=== PATIENT | female | born 1960 | race Two or more races ===

== ENCOUNTER 2017-05-07 19:17 | Emergency (ER) | payer OTHER, MEDICAID ==
[2017-05-07 21:56] VITALS: BP 151/88
--- NOTE | 2017-05-07 21:59 | ER Document Report ---
ED Extremity Problem, Upper - General Chief Complaint: Laceration Stated Complaint: FINGER LACERATION Time Seen by Provider: 05/07/17 21:50 Mode of Arrival: Ambulatory Information source: Patient TRAVEL OUTSIDE OF THE [place] IN LAST 30 DAYS: No - HPI Patient complains to provider of: Injury, Left Onset: Just prior to arrival Recent injury: Yes Where: Work Notes: Patient states she was cutting onions at work with a knife when she accidentally cut the tip of her left index finger. She states that she was able to get the bleeding to stop by putting ground coffee onto the wound. She denies any pain at this time. She denies any numbness, tingling, weakness. She denies any fevers. She denies any other injuries. She denies any chest pain or shortness of breath. She denies any nausea, vomiting, diarrhea. She denies any difficulty with movement. She denies any pain currently. No other complaints, no other injuries. - Related Data Allergies/Adverse Reactions: Iodinated Contrast- Oral and IV Dye Allergy (Intermediate, Verified 05/07/17 19: 18) VOMITING Past Medical History - Social History Smoking Status: Never Smoker Family History: Reviewed & Not Pertinent Patient has suicidal ideation: No Patient has homicidal ideation: No Renal/ Medical History: Denies: Hx Peritoneal Dialysis Review of Systems - Review of Systems -: Yes All other systems reviewed and negative Physical Exam - Vital signs Vitals: Temp Pulse BP Pulse Ox 98.4 F 97 169/99 H 99 05/07/17 19:52 05/07/17 19:52 05/07/17 19:52 05/07/17 19:52 - Notes Notes: GENERAL: alert, cooperative, nontoxic, no distress. HEAD: normocephalic, atraumatic EYES: conjunctiva pink without discharge, no external redness or swelling. EARS: no external swelling, no external redness NOSE: atraumatic, no external swelling MOUTH/THROAT: mucous membranes moist and pink NECK: soft, supple, full range of motion, no meningismus. CHEST: no distress, lungs clear and equal throughout. No wheezing, rales, rhonchi. CARDIAC: regular rate and rhythm, no murmur, normal capillary refill, normal pulses. BACK: full range of motion, no CVA tenderness. EXTREMITIES: full range of motion of all extremities. No redness, no swelling. Avulsion laceration to the tip of the left index finger thumb side involving the distal portion of the fingernail. There is no active bleeding at this time. Normal cap refill and sensation distally. Full flexion and extension of the finger. NEURO: alert and oriented 3, no focal deficits, full range of motion of all extremities. PYSCH: appropriate mood, affect. Patient is cooperative. SKIN: pink, warm, dry, no rash. Course - Re-evaluation Re-evalutation: 05/07/17 21:57 Patient is nontoxic. Stable vitals. The patient arrives with complaints of finger laceration. She externally cut the thumb side left fingertip laceration off using a knife. Is not actively bleeding at this time. The wound will be cleaned and a Gelfoam dressing will be applied to the fingertip. She will be discharged home. Her tetanus is up-to-date. She is neurovascularly intact with no signs of infection. The patient is noted to have elevated blood pressure during today's emergency department visit. The patient was informed of this finding. The patient was instructed that this may be related to pre-hypertension and requires further evaluation with a primary care provider. The patient has no hypertensive symptoms at this time. The patient's emergency department workup and current diagnosis were explained to the patient and or family. Follow-up instructions were provided. Medications if prescribed were discussed. Instructions for when to return to the emergency department including specific worrisome symptoms were discussed with the patient and/or family. - Vital Signs Vital signs: Temp Pulse Resp BP Pulse Ox 98.4 F 97 169/99 H 99 05/07/17 19:52 05/07/17 19:52 05/07/17 19:52 05/07/17 19:52 Discharge - Discharge Clinical Impression: Laceration of left index finger Qualifiers: Encounter type: initial encounter Damage to nail status: with damage Foreign body presence: without foreign body Qualified Code(s): S61.311A - Laceration without foreign body of left index finger with damage to nail, initial encounter Condition: Stable Disposition: HOME, SELF-CARE Instructions: Laceration Care (OM) Additional Instructions: Keep wound clean and dry. Wear dressing for the next 3 days and then you can place a new dressing over the wound. Follow-up for increasing pain, fever, redness, drainage, bleeding you cannot get stopped, or for any further concerns. Your blood pressure was elevated during today's visit. Have this rechecked with your doctor. Forms: Elevated Blood Pressure, Smoking Cessation Education Referrals: [facility] [Provider Group] - Follow up as needed
[2017-05-07] MEDS ORDERED: DIPH/PERTUSS(ACELL)/TETANUS VAC/PF 0.5 ML SYR (>=10YO) IM ONE (22:09)
[2017-05-07] MEDS ORDERED: IBUPROFEN 600 MG TABLET PO ONE (22:27)
== END 2017-05-07 22:36 | disposition home or self-care (01) ==
LOC: ER 19:17
DX: S61.311A Laceration without foreign body of left index finger with damage to nail, initial encounter (principal); W26.0XXA Contact with knife, initial encounter; Y93.G1 Activity, food preparation and clean up; Y99.0 Civilian activity done for income or pay; R03.0 Elevated blood-pressure reading, without diagnosis of hypertension
CPT/HCPCS: 90471; 90715; 99282

== ENCOUNTER 2019-01-22 00:44 | Emergency (ER) | payer MEDICAID, OTHER ==
--- NOTE | 2019-01-22 04:12 | ER Document Report ---
HPI - HPI Time Seen by Provider: 01/22/19 04:03 Pain Level: 5 Context: Patient is a 58-year-old female that comes emergency department for chief complaint of sharp pain in her lower back and also in her left hip. Lower back pain is off to the side of the spine on the left and radiates down the back of her leg, this is been worsening for a week, however she also has pain in the left hip area, she points to the area, this is ultra sharp and painful. She denies any injury. She denies any surgeries. She has a history of type 2 diabetes on metformin. She states she has been taking Aleve for the symptoms but it is not helping. She denies flank pain otherwise, vomiting, dysuria, fever, numbness, incontinence, history of IV drug abuse. Her son is at bedside. Past Medical History - General Information source: Patient - Social History Smoking Status: Never Smoker Frequency of alcohol use: None Drug Abuse: None Lives with: Family Family History: Reviewed & Not Pertinent Patient has suicidal ideation: No Patient has homicidal ideation: No Renal/ Medical History: Denies: Hx Peritoneal Dialysis - Immunizations Immunizations up to date: Yes Hx Diphtheria, Pertussis, Tetanus Vaccination: Yes Vertical Provider Document - CONSTITUTIONAL General Appearance: WD/WN, Mild Distress - Patient is restless and uncomfortable, appears to have difficulty getting comfortable on the bed - INFECTION CONTROL TRAVEL OUTSIDE OF THE [place] IN LAST 30 DAYS: No - HEENT HEENT: Atraumatic, Normocephalic - NECK Neck: Normal Inspection - RESPIRATORY Respiratory: Breath Sounds Normal, No Respiratory Distress - CARDIOVASCULAR Cardiovascular: Regular Rate, Regular Rhythm - GI/ABDOMEN Gastrointestinal: Abdomen Soft, Abdomen Non-Tender - BACK Back: negative: Normal Inspection - Tender with tight muscle fibers along the left paralumbar musculature and down to the buttocks. Positive straight leg raise on the left. No midline tenderness, no saddle anesthesia, no signs of trauma. Normal upper and lower extremity range of motion, normal strength, normal distal neurovascular exam. - MUSCULOSKELETAL/EXTREMETIES Musculoskeletal/Extremeties: Tender - Tender over general palpation of the proximal thigh and hip area. Range of motion is still intact. Normal extremities otherwise. - NEURO Level of Consciousness: Awake, Alert, Appropriate Motor/Sensory: No Motor Deficit, No Sensory Deficit - DERM Integumentary: Warm, Dry, No Rash Course - Re-evaluation Re-evalutation: Patient with no midline tenderness of the back, has positive straight leg raise, what appears to be muscle spasms over the left lumbar area, she is trommel tender over the hip but I suspect this is the thigh and because of how she has been ambulating. However because she has tenderness over the hip and x-ray was p erformed but this was negative. No neurological deficits, signs of spinal cord compression, or concerning symptoms reported otherwise. Patient moves with clear discomfort and does appear to have a herniated disc however. Attempting to provide her with relief giving diazepam for muscle relaxers and she was given steroids here with precautions after this was discussed in detail with patient and son. She does have good follow-up. Discussed return precautions in detail. They state appreciation and agreement. Stable time of discharge. - Vital Signs Vital signs: Temp Pulse Resp BP Pulse Ox 98.1 F 93 16 176/95 H 97 01/22/19 00:48 01/22/19 00:48 01/22/19 00:48 01/22/19 00:48 01/22/19 00:48 Discharge - Discharge Clinical Impression: Left hip pain Lower back pain Qualifiers: Chronicity: acute Back pain laterality: left Sciatica presence: with sciatica Sciatica laterality: sciatica of left side Qualified Code(s): M54.42 - Lumbago with sciatica, left side Condition: Stable Disposition: HOME, SELF-CARE Additional Instructions: Your hip exam is reassuring, the x-ray is normal, this appears to be muscle strain in the thigh probably because of how you are walking with your suspected herniated disc. Watch your carbohydrate intake and increase fluids over the next several days because the steroid can increase your blood sugar. Apply heat to your back, avoid lifting and twisting, take the diazepam as prescribed as a muscle relaxer with precautions as listed. Please follow-up closely with primary care for additional management. Come back if you are worse including inability to urinate, losing control of your bowels, new numbness, fever, or any other concerning symptoms. Prescriptions: Diazepam [Valium 5 mg Tablet] 1 - 2 tab PO TID PRN #12 tablet PRN Reason:
[2019-01-22] MEDS: OXYCODONE-ACETAMINOPHEN 5-325 MG TABLET PO ONE ×2 (04:18→04:35)
[2019-01-22] MEDS: PROMETHAZINE HCL 25 MG TABLET PO ONE ×2 (04:18→04:35)
--- NOTE | 2019-01-22 05:35 | RADIOLOGY REPORT (SQ) ---
EXAM DESCRIPTION: XR HIP 2 OR MORE VIEWS COMPLETED DATE/TME: 01/22/2019 04:11 CLINICAL HISTORY: 58 years Female, sharp pain COMPARISON: None. Findings: Bones, joints, and soft tissues of the LEFT XR HIP 2 VIEWS appear intact. IMPRESSION: No acute findings.
[2019-01-22] MEDS ORDERED: DEXAMETHASONE SOD PHOS INJ 10 MG/1 ML VIAL IM ONE (06:19)
[2019-01-22] MEDS ORDERED: DIAZEPAM 5 MG TABLET PO ONE (06:19)
[2019-01-22 06:45] VITALS: BP 153/92
== END 2019-01-22 06:47 | disposition home or self-care (01) ==
LOC: ER 00:44
DX: M54.42 Lumbago with sciatica, left side (principal); M25.552 Pain in left hip; E11.9 Type 2 diabetes mellitus without complications; Z79.84 Long term (current) use of oral hypoglycemic drugs
CPT/HCPCS: 73502; J3490